=== PATIENT | female | born 1990 | race Caucasian/White ===

== ENCOUNTER 2024-02-24 00:05 | Day surgery (SDC) | payer OTHER, SELFPAY ==
[2024-02-13 14:52] VITALS: BMI 26.5
--- NOTE | 2024-02-13 14:53 | PC.NURSE ---
Report to the Outpatient Waiting Room, entrance under the green pavilion located off [facility], at time _0800_ on date _[id number]_. Planned Procedure Time: _1000_.? Time changes happen often and if your time is changed the preop area will call you the afternoon before. - You and your visitor will be asked to self-screen and do not enter if you have any COVID symptoms. Please call surgeon if you need to reschedule. - A mask is optional within the hospital at this time. Patients may have clear liquids (water, carbonated beverages, clear teas, apple juice) until 3 hours prior to surgery with a maximum of 20 ounces. - No food from midnight until time of surgery and no smoking. This includes no chewing gum, candy or mints. Take only the following medications with a SIP of water on the morning of surgery: ____None DO NOT STOP ANY OF YOUR OTHER PRESCRIPTION MEDICATIONS PRIOR TO SURGERY EXCEPT THE FOLLOWING Medications to discontinue per physician __Multivitamin____ Date to take last naor__[id number]___ Please no make-up, nail vincentian, hairspray, perfume, deodorant, or body powder the day of surgery.? No jewelry (including any body piercings) or valuables the day of surgery, leave them at home.? Please take a shower or bath the night before, or the morning of, surgery with an antibacterial soap.? Wear comfortable, loose fitting clothing.? - Jewelry must be removed prior to entering the operating room.? Rings and piercings that are not removed may be cut off. - The hospital will not accept responsibility for valuables.? - Please leave all valuables, including medications, at home the day of surgery. If you are going home after surgery, a licensed [employer] company driver must drive you home.? - NO public transportation without another adult if you receive anesthesia. - We recommend that an adult stay with you for 24 hours following discharge. - We also recommend that you do not drive, make important decision, drink alcoholic beverages, or take any drugs that were not prescribed by your health care provider for at least 24 hours after your discharge time. Follow any additional instructions given to you from your surgeon. Telephone instructions given to _Terii__and asked if any additional questions and then verbalized understanding. Patient advised to call surgeon office or pre surgery nurse liaison [phone] if any additional questions.
--- NOTE | 2024-02-24 07:30 | WPDHPUPDATE1 ---
History and Physical Update Update Date/Time: 02/24/24 07:30 History and Physical has been reviewed, including an updated exam of the patient. There are NO changes in the patient's condition. Risks, benefits, and alternatives have been discussed and questions answered. Patient agrees to proceed with procedure.
--- NOTE | 2024-02-24 07:30 | PM.HPGS ---
History of Present Illness History of Present Illness Consent: Risks, benefits, and alternatives have been discussed and questions answered. Patient agrees to proceed with procedure. Chief complaint: Menorrhagia Narrative: Blanca Santo is a 33 year old female with irregular and prolonged bleeding. Pelvic ultrasound shows fibroids. Was recommended to undergo D&C hysteroscopy. Risks of infection bleeding, perforation and possible pathology are reviewed. Patient voices understanding and agrees to proceed. Review of Systems Review of Systems: not repeated day of surgery; patient states no changes in status [facility] Past Medical History Medical History (Updated 02/24/24 @ 07:33 by Katty Pollard MD) Bipolar 1 disorder, depressed, full remission PTSD (post-traumatic stress disorder) Surgical History Surgical History (Updated 02/24/24 @ 07:32 by Katty Pollard MD) History of bilateral tubal ligation With 2nd in 2017 History of X2 Social History Social History Smoking packs per day: 1 Smoking cigarettes per day: 20.0 Years smoked: 10 Smoking pack-years: 10.00 Smoking status: Former smoker Tobacco type: cigarettes Smoking end date: 02/12/13 Alcohol intake: current Drinks per week: 7 Substance use type: marijuana Other substance usage details: Occasionally Living arrangements: with family Spiritual care concerns: No Meds Home Medications and Allergies Home Medications ?Medication ?Instructions ?Recorded ?Confirmed ?Type diphenhydramine HCl 25 mg capsule 50 mg PO HS 02/13/24 02/13/24 History (Allergy (diphenhydramine)) multivitamin (Daily Multi-Vitamin 1 tablet PO DAILY 02/13/24 02/13/24 History tablet) valacyclovir 500 mg tablet 500 mg PO DAILY 02/13/24 02/13/24 History (Valtrex) Allergies Allergy/AdvReac Type Severity Reaction Status Date / Time Penicillins Allergy Mild hives Verified 02/13/24 14:42 Exam Const: General: healthy appearing and alert Orientation/consciousness: patient oriented x3 Resp: Effort & Inspection: normal respiratory effort GI: GI Palp: Yes Soft to palpation, No Tenderness to palpation present (GI) and No Palpable mass present : External Female Exam: normal external appearance Speculum Exam - Vagina: normal appearance of the vagina and normal vaginal discharge Speculum Exam - Cervix: normal appearance of the cervix Bimanual exam- vagina & uterus: uterine size normal and consistency normal Bimanual Exam- Adnexa, other: normal adnexae and No adnexal tenderness Neuro: General: patient oriented x3 Assessment and Plan Assessment and plan (1) Menorrhagia: Code(s): N92.0 - Excessive and frequent menstruation with regular cycle Status: Acute Assessment and Plan: Plan to proceed with D&C hysteroscopy
[2024-02-24] MEDS: LACTATED RINGERS 1,000 ML 30 ML IV CONT ×2 (08:30→10:18)
[2024-02-24] MEDS: ACETAMINOPHEN 500 MG TABLET 1000 MG PO (08:30)
--- NOTE | 2024-02-24 08:30 | WPDANESEPPF ---
Anes - Initial Pre Proc Eval Procedure: Operation Date: 02/24/24 10:00 Proposed Procedures p Hysteroscopy Dilation and Curettage - Katty Pollard MD Date/Time: 02/24/24 08:30 Surgeon: Katty Pollard MD Pre Op Diagnosis: Menorrhagia Patient Data Age: 33 Gender: F Height: 1.57 m Weight: 65.9 kg Allergies Allergy/AdvReac Type Severity Reaction Status Date / Time Penicillins Allergy Mild hives Verified 02/13/24 14:42 Home Medications ?Medication ?Instructions ?Recorded ?Confirmed ?Type diphenhydramine HCl 25 mg capsule 50 mg PO HS 02/13/24 02/13/24 History (Allergy (diphenhydramine)) multivitamin (Daily Multi-Vitamin 1 tablet PO DAILY 02/13/24 02/13/24 History tablet) valacyclovir 500 mg tablet 500 mg PO DAILY 02/13/24 02/13/24 History (Valtrex) Patient hx anesthesia problems: none Family hx anesthesia problems: none Results Review: All pre-operative results and documents have been reviewed as part of the pre-operative evaluation. [facility] Past Medical History Medical History (Updated 02/24/24 @ 07:33 by Katty Pollard MD) Bipolar 1 disorder, depressed, full remission PTSD (post-traumatic stress disorder) Surgical History Surgical History (Updated 02/24/24 @ 07:32 by Katty Pollard MD) History of bilateral tubal ligation With 2nd in 2017 History of X2 Social History Social History (Updated 02/24/24 @ 08:34 by Kennedy Balderas DO) Smoking packs per day: 1 Smoking cigarettes per day: 20.0 Years smoked: 10 Smoking pack-years: 10.00 Smoking status: Former smoker Tobacco type: cigarettes Smoking end date: 02/12/13 Alcohol intake: current Alcohol use details: 4-6 shots/day Substance use type: marijuana Other substance usage details: daily most of the time Living arrangements: with family Spiritual care concerns: No Anes - Eval Final PreProcedure Day of Procedure 02/24/24 08:30 Patient weight: overweight Heart: regular rate and rhythm Lungs: clear to auscultation Airway: Mallampati scale class II Neurological: alert and oriented Last oral intake: >/= 8 hours ASA classification: III Emergent: no Anesthetic plan: proceed Anesthesia type and monitoring: general GIVS and standard monitoring Results Review: All pre-operative results and documents have been reviewed as part of the pre-operative evaluation. Informed Consent: The patient's anesthetic plan and its attendant risks and benefits were discussed with the patient/family/POA. Questions were solicited and answers provided to the satisfaction of the patient/family/POA.
[2024-02-24 09:03] VITALS: BP 118/83; PULSE 73; RESP 16; TEMP 35.9; O2SAT 100
[2024-02-24 09:08] LABS: BEDSIDEPREGUCG Negative (Negative)
[2024-02-24 10:18] VITALS: BP 118/67; PULSE 88; RESP 18; O2SAT 99
--- NOTE | 2024-02-24 10:20 | P.OP_ITS ---
Procedure Note - Detailed Date of Procedure 02/24/24 Pre-op Diagnosis Menorrhagia Post-op Diagnosis Same Procedure Performed D and C hysteroscopy Surgeon Katty Pollard MD Anesthesia MAC Findings Uterus sounds to 9cm and is retroverted. Endometrium appears grossly normal. Description of Procedure The patient was taken to the operating room and placed under anesthesia in the dorsal lithotomy position. She was prepped and draped usual sterile fashion. B ivalve speculum was placed in the vagina and the cervix was grasped on the anterior lip with a tenaculum. The uterus was sounded to 9cm and noted to be retroverted. The cervix was serially dilated to a 6 Hegar. The diagnostic hysteroscope was placed and initially there appeared to be a rounded area as a possible fibroid near the endocervical endometrial junction however this was quickly removed with the resection device and was likely just thickened endometrium. The endometrium was resected using the Aveta resection device. The hysteroscope was then removed and the sharp OO curette was used to curette the endometrium until a good uterine cry was noted in all areas. All instruments were then removed. Sponge, needle, and instrument counts are correct per the OR staff. Patient was taken to recovery in stable condition. Estimated Blood Loss 5 Drains No Packing No Pathology Yes (Endometrial shavings and curettings) Complications No immediate complications Condition Stable Disposition PACU
[2024-02-24] MEDS: oxyCODONE HCL (*CRX) 5 MG TAB IR PO (10:45)
[2024-02-24 10:48] VITALS: BP 102/67; PULSE 67; RESP 14
[2024-02-24 10:58] VITALS: BP 122/76; PULSE 80; RESP 14
== END 2024-02-24 11:13 | disposition home or self-care (01) ==
PROVIDERS: PCP Nurse Practitioner Family; Visit Provider Obstetrics & Gynecology Gynecology
PROC: 0U5B8ZZ Destruction of Endometrium, Via Natural or Artificial Opening Endoscopic (ICD-10-PCS; CPT 58563; principal; 2024-02-24 10:00)
DX: N92.0 Excessive and frequent menstruation with regular cycle (principal); F31.76 Bipolar disorder, in full remission, most recent episode depressed; F43.10 Post-traumatic stress disorder, unspecified; F12.90 Cannabis use, unspecified, uncomplicated; Z98.890 Other specified postprocedural states; Z98.51 Tubal ligation status; Z87.891 Personal history of nicotine dependence
CPT/HCPCS: 58558; 88305; A9270; J2003; J2250; J2704; J3010; J7120